=== PATIENT | female | born 1995 | race Caucasian/White ===

== ENCOUNTER 2016-10-09 09:41 | Emergency (ER) | payer BC ==
[2016-10-09 10:10] VITALS: BP 137/74
--- NOTE | 2016-10-09 10:46 | UC ---
Throat Pain/Nasal Markell HPI - History of Current Complaint Chief Complaint: UC Stated Complaint: SWOLLEN GLANDS,FEVER Time Seen by Provider: 10/09/16 10:15 Hx Obtained From: Patient Hx Last Menstrual Period: 3 weeks ?: No Onset/Duration: Sudden Onset, Lasting Days Severity: Moderate Pain Intensity: 6 Pain Scale Used: 0-10 Numeric Cough: None Associated Signs & Symptoms: Positive: Dysphagia, Fever - Epiglottits Risk Factors Epiglottis Risk Factors: Negative - Allergies/Home Medications Allergies/Adverse Reactions: Allergies Allergy/AdvReac Type Severity Reaction Status Date / Time Penicillins [PCN] Allergy Hives Verified 05/28/16 10:41 gluten Allergy Vomiting Uncoded 10/09/16 10:10 Home Medications: Home Medications Albuterol HFA INHALER* [Ventolin HFA Inhaler*] 1 puff INH Q6H PRN 10/09/16 [ History Confirmed 10/09/16] PMH/Surg Hx/FS Hx/Imm Hx Previously Healthy: Yes Endocrine History Of: Denies: Diabetes, Thyroid Disease, Hyperthyroidism, Hypothyroidism, Dyslipidemia Cardiovascular History Of: Denies: Cardiac Disorders, Hypertension, Pacemaker/ICD, Myocardial Infarction , Congestive Heart Failure, Atrial Fibrillation, Deep Vein Thrombosis, Bleeding Disorders Respiratory History Of: Reports: Asthma - She has bronchodilators in the past, but not regularly. Denies: COPD, Bronchitis, Pneumonia, Pulmonary Embolism GI/ History Of: Denies: Gastroesophageal Reflux, Ulcer, Gastrointestinal Bleed, Gall Bladder Disease, Kidney Stones, Diverticulitis, Renal Disease, Urosepsis Neurological History Of: Denies: TIA, CVA, Dementia, Seizures, Migraine Psychological History Of: Denies: Anxiety, Depression, Bipolar Disorder, Schizophrenia, Post Traumatic Stress Disorder Cancer History Of: Denies: Lung Cancer, Colorectal Cancer, Breast Cancer, Prostate Cancer, Cervical Cancer Other History Of: Negative For: HIV, Hepatitis B, Hepatitis C - Surgical History Surgical History: Yes Surgery Procedure, Year, and Place: wisdom teeth extraction summer 2014 - Family History Known Family History: Negative: Cardiac Disease, Hypertension, Respiratory Disease - Social History Alcohol Use: None Substance Use Type: None Smoking Status (MU): Never Smoked Tobacco - Immunization History Most Recent Influenza Vaccination: Not the 2015/2016 Season Review of Systems Constitutional: Fever, Fatigue Skin: Negative Eyes: Negative ENT: Sore Throat Cardiovascular: Negative Gastrointestinal: Negative Genitourinary: Negative Motor: Negative Neurovascular: Negative Musculoskeletal: Negative Neurological: Negative Psychological: Negative All Other Systems Reviewed And Are Negative: Yes Physical Exam Triage Information Reviewed: Yes Appearance: Well-Nourished, Ill-Appearing, Pain Distress Vital Signs: Initial Vital Signs Temp 98.5 F 10/09/16 10:02 Pulse 128 10/09/16 10:02 Resp 18 10/09/16 10:02 BP 137/74 10/09/16 10:02 Pulse Ox 100 10/09/16 10:02 Vital Signs Reviewed: Yes Eye Exam: Normal Eyes: Positive: Conjunctiva Clear ENT Exam: Normal ENT: Positive: Pharyngeal erythema, TMs normal, Tonsillar swelling, Tonsillar exudate Dental Exam: Normal Neck exam: Normal Neck: Positive: Supple, Nontender, No Lymphadenopathy Respiratory Exam: Normal Respiratory: Positive: Chest non-tender, Lungs clear, Normal breath sounds Cardiovascular Exam: Normal Cardiovascular: Positive: No Murmur, Pulses Normal, Tachycardia Abdominal Exam: Normal Abdomen Description: Positive: Nontender, No Organomegaly, Soft Bowel Sounds: Positive: Present Musculoskeletal Exam: Normal Musculoskeletal: Positive: Strength Intact, ROM Intact, No Edema Neurological Exam: Normal Neurological: Positive: Alert, Muscle Tone Normal Psychological Exam: Normal Skin Exam: Normal Throat Pain/Nasal Course/Dx - Course Course Of Treatment: hx obtained, exam performed, meds prescribed for positive strep. - Differential Dx/Diagnosis Differential Diagnosis/HQI/PQRI: Influenza, Laryngitis, Pharyngitis, Sinusitis, Tonsillitis Provider Diagnoses: strep throat Discharge - Discharge Plan Condition: Stable Disposition: HOME Patient Education Materials: Strep Throat (ED) Additional Instructions: Take the medication as prescribed. get plenty of rest and increase fluid intake , Tylenol or Ibuprofen for pain and fever. I do recommend that you follow up on your thyroid enlargment. I recommend that you get an Ultrasound in conjunction with the blood work.
== END 2016-10-09 10:54 | disposition home or self-care (01) ==
LOC: UCCORT 09:41
DX: J02.0 Streptococcal pharyngitis (principal); Z88.0 Allergy status to penicillin
CPT/HCPCS: 87651; 99212; G0463

== ENCOUNTER 2016-12-08 10:34 | Emergency (ER) | payer BC ==
[2016-12-08 12:03] VITALS: BP 143/88
--- NOTE | 2016-12-08 12:27 | UC ---
Throat Pain/Nasal Markell HPI - HPI Summary HPI Summary: complaint of cpugh that started approx 3 days ago- sounds like a barky cough nasal congestion cough is produciev and is worse at night denies headaches, sore throat, ear pain took some nyquil without relief last night hasn't used her albuterol inhaler during this illness. - History of Current Complaint Chief Complaint: UCRespiratory Stated Complaint: BARKING COUGH Time Seen by Provider: 12/08/16 12:15 Hx Obtained From: Patient Hx Last Menstrual Period: 12/03/16 - Allergies/Home Medications Allergies/Adverse Reactions: Allergies Allergy/AdvReac Type Severity Reaction Status Date / Time Penicillins [PCN] Allergy Hives Verified 12/08/16 11:55 gluten Allergy Vomiting Uncoded 12/08/16 11:55 Home Medications: Home Medications [id number] [Night Time Multi-Symptom 15-6.25-325 mg] 1 cap PO BEDTIME PRN 12/08/16 [History Confirmed 12/08/16] PMH/Surg Hx/FS Hx/Imm Hx Previously Healthy: No - recent strep 1 month ago, influenza B Endocrine History Of: Denies: Diabetes, Thyroid Disease, Hyperthyroidism, Hypothyroidism, Dyslipidemia Cardiovascular History Of: Denies: Cardiac Disorders, Hypertension, Pacemaker/ICD, Myocardial Infarction , Congestive Heart Failure, Atrial Fibrillation, Deep Vein Thrombosis, Bleeding Disorders Respiratory History Of: Reports: Asthma - She has bronchodilators in the past, but not regularly. Denies: COPD, Bronchitis, Pneumonia, Pulmonary Embolism GI/ History Of: Denies: Gastroesophageal Reflux, Ulcer, Gastrointestinal Bleed, Gall Bladder Disease, Kidney Stones, Diverticulitis, Renal Disease, Urosepsis Neurological History Of: Denies: TIA, CVA, Dementia, Seizures, Migraine Psychological History Of: Denies: Anxiety, Depression, Bipolar Disorder, Schizophrenia, Post Traumatic Stress Disorder Cancer History Of: Denies: Lung Cancer, Colorectal Cancer, Breast Cancer, Prostate Cancer, Cervical Cancer Other History Of: Negative For: HIV, Hepatitis B, Hepatitis C - Surgical History Surgical History: Yes Surgery Procedure, Year, and Place: wisdom teeth extraction summer 2014 - Family History Known Family History: Negative: Cardiac Disease, Hypertension, Respiratory Disease - Social History Occupation: Student Alcohol Use: Occasionally Substance Use Type: None Smoking Status (MU): Never Smoked Tobacco - Immunization History Most Recent Influenza Vaccination: Not the Season Review of Systems Constitutional: Negative Skin: Negative Eyes: Negative ENT: Ear Ache, Nasal Discharge Respiratory: Cough Cardiovascular: Negative Gastrointestinal: Negative Genitourinary: Negative Motor: Negative Neurovascular: Negative Musculoskeletal: Negative Neurological: Negative All Other Systems Reviewed And Are Negative: Yes Physical Exam Triage Information Reviewed: Yes Appearance: No Pain Distress, Well-Nourished Vital Signs: Initial Vital Signs Temp 98 F 12/08/16 11:57 Pulse 101 12/08/16 11:57 Resp 20 12/08/16 11:57 BP 143/88 12/08/16 11:57 Pulse Ox 99 12/08/16 11:57 Vital Signs Reviewed: Yes Eyes: Positive: Conjunctiva Clear ENT: Positive: Pharyngeal erythema, Nasal congestion, Nasal drainage, TMs normal , Other: - no sinus tenderness Neck: Positive: No Lymphadenopathy Respiratory: Positive: Lungs clear, Normal breath sounds, No respiratory distress Cardiovascular: Positive: RRR, No Murmur, Pulses Normal Abdomen Description: Positive: Nontender, Soft Bowel Sounds: Positive: Present Musculoskeletal: Positive: No Edema Neurological Exam: Normal Psychological Exam: Normal Skin Exam: Normal Throat Pain/Nasal Course/Dx - Differential Dx/Diagnosis Differential Diagnosis/HQI/PQRI: Pharyngitis, Sinusitis, URI Provider Diagnoses: URI Discharge - Discharge Plan Condition: Stable Disposition: HOME Prescriptions: Benzonatate CAP* [Tessalon 100 MG CAP*] 100 mg PO TID #30 cap Oxymetazoline 0.05% NASAL SPR* [Afrin 0.05% NASAL SPRAY*] 1 spray NASAL Q12H #1 btl Patient Education Materials: Upper Respiratory Infection (ED) Referrals: Non Staff,Doctor [Primary Care Provider] - [facility] [Outside] Additional Instructions: VIRAL UPPER RESPIRATORY INFECTION (COMMON COLD) What is Viral Upper Respiratory Infection? Viral upper respiratory infection is the medical term for the common cold. Respiratory infections can be caused by either a virus or bacteria. The common cold is caused by a virus. The virus travels through the air and can be passed easily from one person to another. This is one reason that it is so important to cover your mouth when you cough or sneeze. When you cover your mouth you will get the virus on your hands. If you touch something with that hand the virus is spread to the object you touch. Because of this you should be sure to wash your hands often when you have a cold. Symptoms usually begin 1 to 3 days after the virus takes hold in your body. Other people can catch your cold even before you start to notice symptoms, which is one reason why colds are hard to prevent. Symptoms May Include: Scratchiness or tickling in the throat Sore throat Stuffy nose Generalized aches and pains Coughing or sneezing Feeling tired Treatment Recommendations: Drink plenty of clear, nonalcoholic fluids, such as water, sports drinks, or juice. For example, an average adult should drink 8 ounces every hour, a child 6 to 10 years should drink 4 ounces every hour, and a child under 6 should drink 1 to 2 ounces every hour. You should rest as much as possible. You can use a cool-mist humidifier or steam vaporizer to increase air moisture. This will make it easier to breathe. Remember that a steam vaporizer may contain hot water that can cause severe leong. If you smoke, stopsmoke irritates bronchial passages. If you are coughing up mucus, and milk seems to make the sputum thicker, do not eat or drink foods that contain milk. You want to try to cough up mucous whenever possible so that you dont get pneumonia. Do not use cough suppressant medicine without your healthcare providers [place]. You should take all medications prescribed until completely gone, or as instructed. Non-prescription medicine such as acetaminophen (Tylenol) or ibuprofen (Motrin , Advil) may help your aches, pains, and fever. Do not take someone else's medicine, or penicillin tablets that you may have saved. You could cause a more serious problem than you already have. Don't bundle up to sweat out a fever. It only makes your fever worse. If you feel cold, cover up; if you feel warm, dress lightly. Your blood pressure is elevated. Please contact your primary care provider within 1 day -4 weeks for further evaluation.
== END 2016-12-08 12:39 | disposition home or self-care (01) ==
LOC: UCCORT 10:34
DX: J06.9 Acute upper respiratory infection, unspecified (principal); Z88.0 Allergy status to penicillin
CPT/HCPCS: 99211; G0463

== ENCOUNTER 2017-07-04 07:07 | Emergency (ER) | payer BC ==
[2017-07-04 07:17] VITALS: BP 128/78
--- NOTE | 2017-07-04 07:20 | UC ---
Lower Extremity/Ankle HPI - HPI Summary HPI Summary: 22 YEAR FEMALE PRESENTS WITH COMPLAINS OF INGROWN TOE NAIL OF RIGHT BIG TOE - History of Current Complaint Chief Complaint: UCSkin Stated Complaint: RIGHT BIG TOE COMPLAINT Time Seen by Provider: 07/04/17 07:19 Hx Obtained From: Patient Hx Last Menstrual Period: 06/26/17 Onset/Duration: Lasting Days Severity Initially: Moderate Severity Currently: Moderate Pain Scale Used: 0-10 Numeric - 5 Aggravating Factor(s): Standing - Allergies/Home Medications Allergies/Adverse Reactions: Allergies Allergy/AdvReac Type Severity Reaction Status Date / Time Penicillins [PCN] Allergy Hives Verified 07/04/17 07:17 gluten Allergy Vomiting Uncoded 07/04/17 07:17 PMH/Surg Hx/FS Hx/Imm Hx Previously Healthy: Yes Other History Of: Negative For: HIV, Hepatitis B, Hepatitis C - Surgical History Surgical History: Yes Surgery Procedure, Year, and Place: wisdom teeth extraction summer 2014 - Family History Known Family History: Positive: None Negative: Cardiac Disease, Hypertension, Respiratory Disease - Social History Alcohol Use: Occasionally Substance Use Type: None Smoking Status (MU): Never Smoked Tobacco - Immunization History Most Recent Influenza Vaccination: no Review of Systems Constitutional: Other - INGROWN TOENAIL OF RIGHT BIG TOE Skin: Negative Eyes: Negative ENT: Negative Respiratory: Negative Cardiovascular: Negative Gastrointestinal: Negative Genitourinary: Negative Motor: Negative Neurovascular: Negative Musculoskeletal: Negative Neurological: Negative Psychological: Negative All Other Systems Reviewed And Are Negative: Yes Physical Exam Triage Information Reviewed: Yes Vital Signs: Initial Vital Signs Temp 36.4 C 07/04/17 07:13 Pulse 85 07/04/17 07:13 Resp 16 07/04/17 07:13 BP 128/78 07/04/17 07:13 Pulse Ox 100 07/04/17 07:13 Vital Signs Reviewed: Yes Eye Exam: Normal ENT Exam: Normal Dental Exam: Normal Neck exam: Normal Neck: Positive: 1 Respiratory Exam: Normal Cardiovascular Exam: Normal Abdominal Exam: Normal Musculoskeletal Exam: Normal Neurological Exam: Normal Psychological Exam: Normal Skin: Positive: Other - ingrown toe nail of right big toe Procedures - Procedure Summary Procedure Summary: ingrown toenail of right big toe, betadine, iris scissor, partial excision of medial right big toenail, no complications, minimal bleeding, time out done. Lower Extremity Course/Dx - Differential Dx/Diagnosis Provider Diagnoses: ingrown toenail of right big toe Discharge - Discharge Plan Condition: Stable Disposition: HOME Prescriptions: DOXYcycline CAP(*) [DOXYcycline 100MG CAP(*)] 100 mg PO BID #14 cap Patient Education Materials: Ingrown Nail (ED) Referrals: Non Staff,Doctor [Primary Care Provider] -
[2017-07-04] MEDS ORDERED: Lidocaine 1% MPF* 2 ML VIAL INJ ONE ×2 (07:22)
== END 2017-07-04 07:55 | disposition home or self-care (01) ==
LOC: UCCORT 07:07
DX: L60.0 Ingrowing nail (principal)
CPT/HCPCS: 11765; 99213; G0463

== ENCOUNTER 2017-11-04 17:50 | Emergency (ER) | payer BC ==
[2017-11-04 20:19] VITALS: BP 132/72
--- NOTE | 2017-11-04 20:46 | UC ---
Hand/Wrist HPI - HPI Summary HPI Summary: HAS HAD A LUMP ON BACK OF LEFT WRIST FOR OVER A MONTH. NOTICED IT AFTER LEANING BACKWARDS ON HANDS - FELT A POP IN HER WRIST AND THEN SAW THE BUMP. SINCE THEN HAS GOTTEN MORE UNCOMFORTABLE. NO NUMBNESS, TINGLING OR WEAKNESS. - History Of Current Complaint Chief Complaint: UCUpperExtremity Stated Complaint: L WRIST SKIN COMPLAINT Time Seen by Provider: 11/04/17 20:24 Hx Obtained From: Patient Hx Last Menstrual Period: 10/09/17 Onset/Duration: Sudden Onset, Lasting Weeks, Still Present Severity Initially: Moderate Severity Currently: Moderate Pain Intensity: 5 Pain Scale Used: 0-10 Numeric Character Of Pain: Dull Aggravating Factor(s): Movement Alleviating Factor(s): Nothing Associated Signs And Symptoms: Positive: Swelling. Negative: Redness, Bruising , Weakness, Numbness/Tingling - Allergies/Home Medications Allergies/Adverse Reactions: Allergies Allergy/AdvReac Type Severity Reaction Status Date / Time Penicillins Allergy Unknown Hives Verified 11/04/17 20:12 gluten Allergy Vomiting Uncoded 11/04/17 20:12 PMH/Surg Hx/FS Hx/Imm Hx Respiratory History: Asthma Other History Of: Negative For: HIV, Hepatitis B, Hepatitis C - Surgical History Surgical History: Yes Surgery Procedure, Year, and Place: wisdom teeth extraction summer 2014 - Family History Known Family History: Positive: None Negative: Cardiac Disease, Hypertension, Respiratory Disease - Social History Alcohol Use: Occasionally Substance Use Type: None Smoking Status (MU): Never Smoked Tobacco - Immunization History Most Recent Influenza Vaccination: no Review of Systems Constitutional: Negative Skin: Other - LUMP LEFT WRIST Respiratory: Negative Cardiovascular: Negative Gastrointestinal: Negative All Other Systems Reviewed And Are Negative: Yes Physical Exam Triage Information Reviewed: Yes Appearance: Well-Appearing, No Pain Distress, Well-Nourished Vital Signs: Initial Vital Signs Temp 98.6 F 11/04/17 20:13 Pulse 95 11/04/17 20:13 Resp 18 11/04/17 20:13 BP 132/72 11/04/17 20:13 Pulse Ox 100 11/04/17 20:13 Vital Signs Reviewed: Yes Eyes: Positive: Conjunctiva Clear ENT: Positive: Hearing grossly normal Neck: Positive: Supple Respiratory: Positive: No respiratory distress, No accessory muscle use Cardiovascular: Positive: Pulses Normal Abdomen Description: Positive: Soft Musculoskeletal: Positive: ROM Intact, No Edema Neurological: Positive: Alert Psychological: Positive: Age Appropriate Behavior Skin: Positive: Other - 1.5 CM MILDLY TENDER NODULE BACK OF LEFT WRIST. Hand/Wrist Course/Dx - Differential Dx/Diagnosis Provider Diagnoses: GANGLION CYST LEFT WRIST Discharge - Sign-Out/Discharge Documenting (check all that apply): Discharge - Discharge Plan Condition: Stable Disposition: HOME Patient Education Materials: Ganglion Cysts (ED) Referrals: Maulik Cameron MD [Medical Doctor] - 1 Week Additional Instructions: CALL [facility] TO SCHEDULE AN APPT TO DISCUSS TREATMENT OPTIONS. - Billing Disposition and Condition Condition: STABLE Disposition: HOME
== END 2017-11-04 21:01 | disposition home or self-care (01) ==
LOC: UCCORT 17:50
DX: M67.432 Ganglion, left wrist (principal); Z88.0 Allergy status to penicillin; Z91.018 Allergy to other foods
CPT/HCPCS: 99211; G0463